=== PATIENT | female | born 1990 | race Caucasian/White ===

== ENCOUNTER 2019-03-31 09:55 | Emergency (ER) | payer SELFPAY ==
--- NOTE | 2019-03-31 09:57 | ED.GENADUL_ITS ---
Discharge Plan Disposition Patient Disposition: HOME Condition: Improving Discharge Details Chief Complaint: Nausea/Vomit/Diar Clinical Impression: Nausea vomiting and diarrhea, First trimester Primary Care Provider: None,None ED Provider: Luisa Vasquez Home Meds and New Rx's Prescriptions: New ondansetron HCl [Zofran] 4 mg tablet 4 mg PO Q6H PRN (Reason: nausea and vomiting) Qty: 10 RF: 0 Discharge Instructions Instructions: Acute Nausea and Vomiting (ED), Acute Diarrhea (ED), First Trimester (ED) Additional Instructions: Drink plenty of fluids and get plenty of rest. Take the Zofran as needed and directed for nausea and vomiting. Follow-up with women's wellness at the hospital to establish care for this Return to the emergency department if you develop any worsening or new concerning symptoms. Stand Alone Forms: Work Release Referrals: Stacie Perez MD [ [facility] STAFF PHYSICIAN] - Discharge Data Discharge Physician: Luisa Vasquez Medical Decision Making 1005 -- 28-year-old female [id number] at 6 weeks 5 days presents with vomiting for the past 2 days. Also admits to upper abdominal pain which resolves with vomiting and then returns. Admits to some mild blood-tinged vaginal discharge but otherwise narayan es any vaginal bleeding. Also admits to minimal intermittent diarrhea. Differential diagnosis includes nausea and vomiting in , viral illness, gastroenteritis, less likely ectopic . Her abdominal pain appears likely GI related, but as she has had no dating ultrasound and has abdominal pain, will obtain a pelvis/transvaginal ultrasound to confirm IUP if possible. Will check screening labs including beta quant, give bolus IV fluids and Reglan and reassess. 1150 --labs and imaging reviewed. White blood cell count 11. Potassium 3.2. Beta quant 33017. Urinalysis notes protein and ketones but no evidence of infection. Ultrasound notes an IUP at 6 weeks and 1 day with a small subchorionic hemorrhage. Patient still complaining of nausea and now complaining of some headache. Patient has not eaten and has been vomiting for the last few days. Will give another liter IV fluids, Zofran and Tylenol and reassess. Case discussed with Dr. Perez -will notify office to establish care with patient -okay with Zofran here and for home. 1325 -- pt feels much better and is requesting to go home. Patient able to eat some crackers and no further nausea and vomiting. She is advised to follow-up with women's wellness. Prescription for Zofran given. She is advised to return here with any worsening or new concerning symptoms. Medical Records Medical records reviewed: Yes I reviewed the patient's medical records. Imaging Data Radiologic Study: Radiologist's impression: US OB TRANSVAGINAL CLINICAL HISTORY: upper abd pain, vomiting, confirm IUP TECHNIQUE: Ultrasound performed using standard protocol. COMPARISON: No exams were available for comparison FINDINGS: Transabdominal and transvaginal exams were performed. There is an intrauterine gestational sac which appears appropriately positioned near the fundus. pole and yolk sac are seen. cardiac activity is demonstrated at 130 beats per minute. There is a question of a small amount of subchorionic hemorrhage. The crown-rump length measurements correspond to 6 weeks 1 day and an EDC of 2July 2027. Corpus luteum cyst is noted on the right ovary. There is no free fluid. IMPRESSION: Living intrauterine gestation of 6 weeks 1 day. No evidence of an ectopic . Question of a small amount of subchorionic hemorrhage. Lab Data Lab results reviewed: Yes I reviewed the patient's lab results. Labs: Laboratory Tests Range/Units 03/31/19 03/31/19 03/31/19 10:01 10:01 10:25 WBC (4.4-10.8) k/cumm 11.42 H RBC (4.00-5.20) m/cumm 4.59 Hgb (12.0-15.5) g/dL 13.9 Hct (36.0-46.0) % 39.2 MCV (80-95) fL 85.4 MCH (27.0-33.0) pg 30.3 MCHC (32.0-36.0) g/dL 35.5 RDW (11.7-14.6) % 12.3 Plt Count (130-400) x1000/uL 309 MPV (8.0-11.0) fL 10.3 Immature Gran % 0.3 Neutrophils % 76.6 Lymphocytes % 15.1 Monocytes % 7.5 Eosinophils % 0.3 Basophils % 0.2 Absolute Neutrophils (1.2-6.7) k/cumm 8.75 H Absolute Lymphocytes (1.2-3.4) k/cumm 1.72 Absolute Monocytes (0.11-0.7) k/cumm 0.86 H Absolute Eosinophils (0.0-0.7) k/cumm 0.03 Absolute Basophils (0.0-0.2) k/cumm 0.02 Sodium (136-145) mmol/L 136 Potassium (3.5-5.1) mmol/L 3.2 L Chloride (98-107) mmol/L 98 Carbon Dioxide (21.0-32.0) mmol/L 22.6 Anion Gap (3-11) mmol/L 15.4 H BUN (7-18) mg/dL 13 Creatinine (0.55-1.02) mg/dL 0.70 Estimated GFR/1.73 m2 (mL/min/1.73m2) >= 60.00 Glucose (70-100) mg/dL 92 Calcium (8.5-10.1) mg/dL 9.1 Total Bilirubin (0.2-1.0) mg/dL 0.9 AST (15-37) U/L 11 L ALT (14-59) U/L 21 Alkaline Phosphatase (46-116) U/L 46 Total Protein (6.4-8.2) g/dL 7.7 Albumin (3.4-5.0) g/dL 4.3 Beta HCG, Quant (1-3) mIU/mL 95351 H Urine Color (Yellow) Urine Clarity (Clear) Urine pH (5-8) Ur Specific [place] (1.005-1.025) Urine Protein (Negative) mg/dL Urine Ketones (Negative) mg/dL Urine Blood (Negative) Urine Nitrite (Negative) Urine Bilirubin (Negative) Urine Urobilinogen (Up TO 0.2) EU/dL Ur Leukocyte Esterase (Negative) Urine RBC (0-2) Urine WBC (0-5) HPF Ur Epithelial Cells (Negative) HPF Urine Crystals (Negative) HPF Urine Bacteria (Negative) HPF Urine Casts (Negative) LPF Urine Mucus (Negative) Ur Culture Indicated? Urine Glucose (Negative) mg/dL Patient ABO/Rh A Positive Range/Units 03/31/19 11:40 WBC (4.4-10.8) k/cumm RBC (4.00-5.20) m/cumm Hgb (12.0-15.5) g/dL Hct (36.0-46.0) % MCV (80-95) fL MCH (27.0-33.0) pg MCHC (32.0-36.0) g/dL RDW (11.7-14.6) % Plt Count (130-400) x1000/uL MPV (8.0-11.0) fL Immature Gran % Neutrophils % Lymphocytes % Monocytes % Eosinophils % Basophils % Absolute Neutrophils (1.2-6.7) k/cumm Absolute Lymphocytes (1.2-3.4) k/cumm Absolute Monocytes (0.11-0.7) k/cumm Absolute Eosinophils (0.0-0.7) k/cumm Absolute Basophils (0.0-0.2) k/cumm Sodium (136-145) mmol/L Potassium (3.5-5.1) mmol/L Chloride (98-107) mmol/L Carbon Dioxide (21.0-32.0) mmol/L Anion Gap (3-11) mmol/L BUN (7-18) mg/dL Creatinine (0.55-1.02) mg/dL Estimated GFR/1.73 m2 (mL/min/1.73m2) Glucose (70-100) mg/dL Calcium (8.5-10.1) mg/dL Total Bilirubin (0.2-1.0) mg/dL AST (15-37) U/L ALT (14-59) U/L Alkaline Phosphatase (46-116) U/L Total Protein (6.4-8.2) g/dL Albumin (3.4-5.0) g/dL Beta HCG, Quant (1-3) mIU/mL Urine Color (Yellow) Suzie Urine Clarity (Clear) Clear Urine pH (5-8) 6.0 Ur Specific [place] (1.005-1.025) >= 1.030 H Urine Protein (Negative) mg/dL 30 H Urine Ketones (Negative) mg/dL >=160 H Urine Blood (Negative) Trace-intact H Urine Nitrite (Negative) Negative Urine Bilirubin (Negative) Small H Urine Urobilinogen (Up TO 0.2) EU/dL 1.0 H Ur Leukocyte Esterase (Negative) Negative Urine RBC (0-2) 0-2 Urine WBC (0-5) HPF 0-2 Ur Epithelial Cells (Negative) HPF Moderate Urine Crystals (Negative) HPF Negative Urine Bacteria (Negative) HPF Few Urine Casts (Negative) LPF Negative Urine Mucus (Negative) Moderate Ur Culture Indicated? No Urine Glucose (Negative) mg/dL Negative Patient ABO/Rh HPI General Mode of arrival: ambulatory . Date/Time Provider Initiated Documentation: 03/31/19 09:56 . Limitations to Documentation: no limitations . Information obtained by: patient . History of Present Illness described as moderate, Quality is described as aching, and is localized to the abdomen (across upper abdomen). Patient reports no radiation. Patient started experiencing this day(s) (2) and it has been intermittent. other things that improve symptom(s), (briefing improved with vomiting then pain returns) Patient notes nausea/vomiting (multiple times daily, bile) and other (occasional diarrhea); denies fever/chills, headaches and loss of appetite. HPI Narrative: Main complaint is vomiting x 2 days. Related Data Home Medications Medication Instructions Recorded Confirmed ondansetron HCl [Zofran] 4 mg PO Q6H PRN #10 tab 03/31/19 Previous Rx's Medication Instructions Recorded ondansetron HCl [Zofran] 4 mg PO Q6H PRN #10 tab 03/31/19 Allergies Allergy/AdvReac Type Severity Reaction Status Date / Time No Known Allergies Allergy Unverified 03/31/19 10:04 Review of Systems All systems reviewed & are unremarkable except as noted in HPI and below Constitutional Constitutional: Reports as per HPI, Denies chills and Denies fever(s) Eyes Eyes: Denies blurry vision ENT Ears, Nose, Mouth, and Throat: Denies dizziness, Denies sore throat and Denies throat swelling Cardiovascular Cardiovascular: Denies chest pain and Denies dyspnea Respiratory Respiratory: Denies cough and Denies dyspnea Gastrointestinal Gastrointestinal: Denies abdominal pain, Denies diarrhea and Denies vomiting Genitourinary Genitourinary: Denies hematuria and Denies dysuria Musculoskeletal Musculoskeletal: Denies back pain and Denies numbness Integumentary/Breasts Skin/Breast: Denies lesions and Denies rash Neurologic Neurologic: Denies dizziness, Denies focal weakness and Denies numbness Allergic/Immunologic Allergic/Immunologic: Denies throat swelling [facility] Medical History No significant past medical history (Acute) Surgical History S/p bilateral myringotomy with tube placement (Acute) Social History Smoking/Tobacco Use Status: Former Tobacco Use Alcohol Intake: never Drug use: Daily Substance use type: marijuana Additional Social history: unable to assess privately Exam Const General: cooperative, healthy appearing and no acute distress HENMT Head: normal to inspection Face and sinus: normal facial exam Eyes General: appearance normal, both eyes and all related structures EOM: EOM intact bilaterally Neck Neck: normal visual inspection and No submandibular swelling Lymphatic: no lymphadenopathy noted Chest Chest: normal inspection of the chest and no tenderness Resp Effort & Inspection: normal respiratory effort and able to speak in complete sentences Auscultation: clear to auscultation bilaterally Cardio Rate: regular rate Rhythm: regular rhythm GI Inspection: normal to inspection Palpation: soft, not firm, not rigid and tender (across upper abdomen) Auscultation: normal bowel sounds Back/Spine/Pelvis Back: no CVA tenderness Skin General skin exam: no rashes or lesions noted Neuro General: alert, awake and oriented x3 Cognition: normal cognition Speech: speech normal Motor: muscle tone normal throughout Sensory Exam: no sensory deficits noted Extrem General: normal to inspection, full ROM, normal capillary refill, no calf tenderness bilaterally and no edema Psych Appearance: grossly normal Mental Status: mental status grossly normal Speech and Movement: speech and movement normal Affect: normal affect
[2019-03-31 10:00] VITALS: BP 125/74; PULSE 87; RESP 18; TEMP 35.6; O2SAT 98
--- NOTE | 2019-03-31 10:13 | DI.US_ITS ---
EXAM: US OB TRANSVAGINAL CLINICAL HISTORY: upper abd pain, vomiting, confirm IUP TECHNIQUE: Ultrasound performed using standard protocol. COMPARISON: No exams were available for comparison FINDINGS: Transabdominal and transvaginal exams were performed. There is an intrauterine gestational sac which appears appropriately positioned near the fundus. Fet al pole and yolk sac are seen. cardiac activity is demonstrated at 130 beats per minute. Ther e is a question of a small amount of subchorionic hemorrhage. The crown-rump length measurements cor respond to 6 weeks 1 day and an EDC of 2July 2027. Corpus luteum cyst is noted on the right ovary. There is no free fluid. IMPRESSION: Living intrauterine gestation of 6 weeks 1 day. No evidence of an ectopic . Question of a small amount of subchorionic hemorrhage.
[2019-03-31] MEDS: Normal Saline 1,000 ML 1000 ML IV ×2 (10:15→13:15)
[2019-03-31] MEDS: Metoclopramide 10 MG/2 ML VIAL IVP (10:22)
[2019-03-31] MEDS: Normal Saline Flush 10 ML SYR IVP (10:25)
[2019-03-31 10:36] LABS: Abs Immature Grans 0.03 k/cumm (0.0-0.09); Absolute Basophil Count 0.02 k/cumm (0.0-0.2); Absolute Eosinophil Count 0.03 k/cumm (0.0-0.7); Absolute Lymphocyte Count 1.72 k/cumm (1.2-3.4); Absolute Monocyte Count 0.86 k/cumm (0.11-0.7); Basophils % 0.2; Eosinophils % 0.3; HCT 39.2 % (36.0-46.0); HGB 13.9 g/dL (12.0-15.5); Immature Grans % 0.3; Lymphocytes % 15.1; Mean Corp. HGB Concentration 35.5 g/dL (32.0-36.0); Mean Corpuscular Hemoglobin 30.3 pg (27.0-33.0); Mean Corpuscular Volume 85.4 fL (80-95); Mean Platelet Volume 10.3 fL (8.0-11.0); Monocytes % 7.5; Neutrophils % 76.6; Platelet Count 309 x1000/uL (130-400); RBC 4.59 m/cumm (4.00-5.20); RBC Distribution Width 12.3 % (11.7-14.6); White Blood Cell Count 11.42 k/cumm (4.4-10.8)
[2019-03-31 10:39] LABS: Absolute Neutrophil Count 8.75 k/cumm (1.2-6.7)
[2019-03-31 11:14] VITALS: BP 113/60; PULSE 72; O2SAT 98
[2019-03-31 11:14] LABS: ALT 21 U/L (14-59); AST 11 U/L (15-37); Albumin 4.3 g/dL (3.4-5.0); Alkaline Phosphatase 46 U/L (46-116); Anion Gap 15.4 mmol/L (3-11); BUN 13 mg/dL (7-18); Bilirubin, Total 0.9 mg/dL (0.2-1.0); CO2 22.6 mmol/L (21.0-32.0); Calcium 9.1 mg/dL (8.5-10.1); Chloride 98 mmol/L (98-107); Glucose 92 mg/dL (70-100); Potassium 3.2 mmol/L (3.5-5.1); Sodium 136 mmol/L (136-145); Total Protein 7.7 g/dL (6.4-8.2)
[2019-03-31 11:45] LABS: Bilirubin Small (Negative); Blood Trace-intact (Negative); Clarity Clear (Clear); Glucose Negative (Negative); Ketones >=160 mg/dL (Negative); Leukocyte Esterase Negative (Negative); Nitrite Negative (Negative); Specific Gravity >= 1.030 (1.005-1.025)
[2019-03-31 11:56] LABS: Bacteria Few HPF (Negative); C & S Indicated? No; Casts Negative LPF (Negative); Crystals Negative HPF (Negative); Epithelial Cells Moderate HPF (Negative); Mucus Moderate (Negative); RBC 0-2 (0-2); WBC 0-2 HPF (0-5)
[2019-03-31 11:59] VITALS: BP 105/56; PULSE 76; O2SAT 99
[2019-03-31 12:08] VITALS: TEMP 35.6
[2019-03-31] MEDS: Ondansetron 4 MG/2 ML VIAL IVP (12:08)
[2019-03-31] MEDS: Acetaminophen 500 MG TAB 1000 MG PO (12:08)
[2019-03-31] MEDS: Potassium Chloride 20 MEQ TABCR 40 MEQ PO (12:12)
--- NOTE | 2019-03-31 12:51 | NUR.NOTE ---
pt given crackers and juventino-juan c to try Nursing Note:
[2019-03-31 13:18] VITALS: BP 112/59; PULSE 75; RESP 14; TEMP 37.2; O2SAT 99
[2019-03-31 13:21] LABS: Lipase 56 U/L (73-393)
== END 2019-03-31 13:44 | disposition home or self-care (01) ==
PROVIDERS: Emergency Provider Physician Assistant
DX: O21.9 Vomiting of pregnancy, unspecified (principal); Z3A.00 Weeks of gestation of pregnancy not specified
CPT/HCPCS: 80053; 83690; 86900; 86901; 96361; 96374; 96375; 99284; 76817; 81003; 81015; 84702; 85025; J2405; J2765

== ENCOUNTER 2019-04-27 14:50 | Outpatient (CLI) | payer SELFPAY ==
[2019-04-27 15:34] LABS: Abs Immature Grans 0.01 k/cumm (0.0-0.09); Absolute Basophil Count 0.01 k/cumm (0.0-0.2); Absolute Eosinophil Count 0.09 k/cumm (0.0-0.7); Absolute Lymphocyte Count 1.56 k/cumm (1.2-3.4); Absolute Monocyte Count 0.55 k/cumm (0.11-0.7); Absolute Neutrophil Count 6.94 k/cumm (1.2-6.7); Basophils % 0.1; HCT 36.7 % (36.0-46.0); HGB 12.6 g/dL (12.0-15.5); Immature Grans % 0.1; Mean Corp. HGB Concentration 34.3 g/dL (32.0-36.0); Mean Corpuscular Hemoglobin 29.8 pg (27.0-33.0); Mean Corpuscular Volume 86.8 fL (80-95); Mean Platelet Volume 9.9 fL (8.0-11.0); Neutrophils % 75.8; Platelet Count 295 x1000/uL (130-400); RBC 4.23 m/cumm (4.00-5.20); RBC Distribution Width 12.6 % (11.7-14.6); White Blood Cell Count 9.16 k/cumm (4.4-10.8)
[2019-04-27 16:18] LABS: TSH (W/Ref FT4) 0.57 uIU/mL (0.36-3.74)
[2019-04-28 10:33] LABS: Hepatitis B Surface Ag Negative (Negative)
[2019-04-28 11:35] LABS: HIV-1/2 Ag & Ab Screen Negative (Negative)
[2019-04-28 11:38] LABS: Hepatitis C Ab w Rflx HCV PCR Negative (Negative)
[2019-04-28 14:23] LABS: Rubella IgG Ab (UVM) Positive (See Note); Varicella IgG Antibody Positive (See Note)
[2019-04-29 11:26] LABS: Syphilis Total Ab w/Reflex Nonreactive (Nonreactive)
== END 2019-04-27 15:10 ==
PROVIDERS: Visit Provider Advanced Practice Midwife
DX: Z34.91 Encounter for supervision of normal pregnancy, unspecified, first trimester (principal); Z11.59 Encounter for screening for other viral diseases; Z11.4 Encounter for screening for human immunodeficiency virus [HIV]
CPT/HCPCS: 36415; 86787; 86803; 86850; 86900; 86901; 87340; 87389; 84443; 85025; 86762; 86780

== ENCOUNTER 2019-04-27 15:02 | Outpatient (REF) | payer SELFPAY ==
--- NOTE | 2019-04-27 14:25 | PAPFT_PTH ---
PATIENT: Bridget Partida LOC: [facility] U#:[id number] AGE/SX: 28/F ROOM: RE04/27/[address]: Maynor March RN : 1990 BED: DIS: 04/27/2019 SPEC #: [id number] RECD: 04/27/19 18:28 STATUS: LYLE REVishal #: [id number] YURI: 04/27/19 14:[address]: Maynor March DEPT: [facility] Cytology RECD BY: Frances Charles ENTERED: 04/27/19 18:28 SP TYPE: PAPFT JONO DR: None Tissues: 1 - CX/ENDOCX FOR PAP SMEARS Procedures: PAP THIN PREP/[facility] Screening HPV DNA PROBE Comments: [id number]
== END 2019-04-27 15:22 ==
LOC: LBN 15:02
PROVIDERS: Visit Provider Advanced Practice Midwife
DX: Z12.4 Encounter for screening for malignant neoplasm of cervix (principal)
CPT/HCPCS: 88142; 87624

== ENCOUNTER 2019-04-27 16:24 | Outpatient (REF) | payer SELFPAY ==
[2019-04-27 18:36] LABS: *AMPHETAMINES SCREEN URINE Negative (Negative); *BARBITURATES SCREEN URINE Negative (Negative); *BENZODIAZEPINES SCREEN URINE Negative (Negative); Cannabinoids THC POSITIVE (Negative); Cocaine Screen,Urine Negative (Negative); METHADONE URINE SCREEN Negative (Negative); OPIATES URINE SCREEN Negative (Negative)
[2019-04-27 18:41] LABS: Tricyclic Antidepressants Negative (Negative)
[2019-05-01 14:43] LABS: Chlamydia Result Negative (Negative)
[2019-05-01 15:27] LABS: GC Result Negative (Negative)
[2019-05-04 07:31] LABS: Buprenorphine Negative; Norbuprenorphine Negative
== END 2019-04-27 16:44 ==
LOC: LBN 16:24
PROVIDERS: Visit Provider Advanced Practice Midwife
DX: Z34.91 Encounter for supervision of normal pregnancy, unspecified, first trimester (principal); Z11.3 Encounter for screening for infections with a predominantly sexual mode of transmission
CPT/HCPCS: 80307; 87491; 87591; 87086

== ENCOUNTER 2019-06-29 00:33 | Outpatient (CLI) | payer SELFPAY ==
--- NOTE | 2019-06-29 09:59 | DI.US_ITS ---
EXAM: US OB 2-3 TRIMESTER CLINICAL HISTORY: morphology, , Z34.90 TECHNIQUE: Ultrasound performed using standard protocol. COMPARISON: US OB TRANSVAGINAL from 03/31/2019 FINDINGS: Ob ultrasound was performed utilizing 2nd trimester protocol. biometry is consistent with gest ational age of 19 weeks 3 days and EDC of 11/20/2019. Placenta is anterior with no placenta previa. Placental tip is 2.4 cm from the cervix on postvoid imaging. Incidental small bilateral choroid plexus cysts are noted, the largest about 4 millimeters in diamete r. anomaly screen within normal limits. cardiac rate 140 BPM.
== END 2019-06-29 00:53 ==
PROVIDERS: Visit Provider Obstetrics & Gynecology Gynecology
DX: Z34.92 Encounter for supervision of normal pregnancy, unspecified, second trimester (principal); Z3A.19 19 weeks gestation of pregnancy
CPT/HCPCS: 76805

== ENCOUNTER 2019-07-03 09:49 | Outpatient (CLI) | payer SELFPAY ==
[2019-07-03 10:13] LABS: Kit/Specimen SENT
== END 2019-07-03 10:09 ==
PROVIDERS: Visit Provider Advanced Practice Midwife
DX: Z34.92 Encounter for supervision of normal pregnancy, unspecified, second trimester (principal); Z36.89 Encounter for other specified antenatal screening
CPT/HCPCS: 36415

== ENCOUNTER 2019-07-17 12:01 | Outpatient (REF) | payer SELFPAY ==
[2019-07-17 13:49] LABS: *AMPHETAMINES SCREEN URINE Negative (Negative); *BARBITURATES SCREEN URINE Negative (Negative); *BENZODIAZEPINES SCREEN URINE Negative (Negative); Cannabinoids THC POSITIVE (Negative); Cocaine Screen,Urine Negative (Negative); METHADONE URINE SCREEN Negative (Negative); OPIATES URINE SCREEN Negative (Negative); Tricyclic Antidepressants Negative (Negative)
== END 2019-07-17 12:21 ==
LOC: LBN 12:01
PROVIDERS: Visit Provider Advanced Practice Midwife
DX: Z34.92 Encounter for supervision of normal pregnancy, unspecified, second trimester (principal)
CPT/HCPCS: 80307

== ENCOUNTER 2019-08-25 00:23 | Outpatient (CLI) | payer SELFPAY ==
--- NOTE | 2019-08-25 06:15 | DI.US_ITS ---
EXAM: US OB F/U FACIAL/LVOT/RVOT CLINICAL HISTORY: f/up on previously seen choroid plexus cyst,Z34.90. COMPARISON: US OB 2-3 TRIMESTER from 06/29/2019 TECHNIQUE: Transabdominalobstetrical ultrasound performed. FINDINGS: Sonographic images demonstrate a single intrauterine gestation. cardiac activity is demonstrat ed at 131 beats per minute. Amount of amniotic fluid appears visually normal. No choroid plexus cys ts are demonstrated on today's examination. There is no ventricular dilatation. IMPRESSION: Choroid plexus cysts head have resolved.. DATA REPOSITORY:
== END 2019-08-25 00:43 ==
PROVIDERS: Visit Provider Advanced Practice Midwife
DX: Z34.93 Encounter for supervision of normal pregnancy, unspecified, third trimester (principal); Z3A.28 28 weeks gestation of pregnancy
CPT/HCPCS: 76815

== ENCOUNTER 2019-08-25 00:56 | Outpatient (CLI) | payer SELFPAY ==
[2019-08-25 12:14] LABS: HCT 32.1 % (36.0-46.0); HGB 10.8 g/dL (12.0-15.5); Mean Corp. HGB Concentration 33.6 g/dL (32.0-36.0); Mean Corpuscular Hemoglobin 31.5 pg (27.0-33.0); Mean Corpuscular Volume 93.6 fL (80-95); Mean Platelet Volume 9.7 fL (8.0-11.0); Platelet Count 282 x1000/uL (130-400); RBC 3.43 m/cumm (4.00-5.20); RBC Distribution Width 12.9 % (11.7-14.6); White Blood Cell Count 12.36 k/cumm (4.4-10.8)
[2019-08-25 12:30] LABS: Glucose,1 Hr (Glucola) 110 mg/dL (80-140)
== END 2019-08-25 01:16 ==
PROVIDERS: Visit Provider Advanced Practice Midwife
DX: Z34.93 Encounter for supervision of normal pregnancy, unspecified, third trimester (principal)
CPT/HCPCS: 36415; 82950; 85027; 87086

== ENCOUNTER 2019-10-23 14:45 | Outpatient (REF) | payer MEDICAID, SELFPAY ==
[2019-10-23 15:13] LABS: *AMPHETAMINES SCREEN URINE Negative (Negative); *BARBITURATES SCREEN URINE Negative (Negative); *BENZODIAZEPINES SCREEN URINE Negative (Negative); Cannabinoids THC POSITIVE (Negative); Cocaine Screen,Urine Negative (Negative); METHADONE URINE SCREEN Negative (Negative); OPIATES URINE SCREEN Negative (Negative)
[2019-10-23 15:15] LABS: Tricyclic Antidepressants Negative (Negative)
[2019-10-29 06:40] LABS: Buprenorphine Negative
== END 2019-10-23 15:05 ==
LOC: LBN 14:45
PROVIDERS: Visit Provider Advanced Practice Midwife
DX: Z34.93 Encounter for supervision of normal pregnancy, unspecified, third trimester (principal); Z36.85 Encounter for antenatal screening for Streptococcus B
CPT/HCPCS: 80307; 87081

== ENCOUNTER 2019-11-20 08:37 | Inpatient (IN) | payer MEDICAID, SELFPAY ==
[2019-11-20 10:21] LABS: HCT 34.8 % (36.0-46.0); HGB 11.9 g/dL (12.0-15.5); Mean Corp. HGB Concentration 34.2 g/dL (32.0-36.0); Mean Corpuscular Hemoglobin 31.6 pg (27.0-33.0); Mean Corpuscular Volume 92.6 fL (80-95); Mean Platelet Volume 10.4 fL (8.0-11.0); Platelet Count 230 x1000/uL (130-400); RBC 3.76 m/cumm (4.00-5.20); RBC Distribution Width 13.5 % (11.7-14.6)
[2019-11-20] MEDS: fentaNYL 100 MCG/2 ML VIAL IT (18:36)
[2019-11-20] MEDS: Bupivacaine 0.25% Pres-Free 30 ML VIAL (18:37)
[2019-11-20] MEDS: Lidocaine 1% Multi-Dose 20 ML VIAL IJ (21:45)
[2019-11-20 22:05] LABS: COVID-19 RT-PCR UVMMC Result Negative (Negative)
[2019-11-20] MEDS: Acetaminophen 325 MG TAB 650 MG PO (23:26)
[2019-11-20] MEDS: Docusate Sodium 100 MG CAP PO (23:26)
[2019-11-20] MEDS: Hamamelis Leaf/Glycerin 100 EACH BOX PR (23:27)
[2019-11-21] MEDS: Ondansetron 4 MG/2 ML VIAL IVP (00:35)
[2019-11-21 06:27] LABS: HCT 30.7 % (36.0-46.0); HGB 10.4 g/dL (12.0-15.5); Mean Corp. HGB Concentration 33.9 g/dL (32.0-36.0); Mean Corpuscular Hemoglobin 31.3 pg (27.0-33.0); Mean Corpuscular Volume 92.5 fL (80-95); Mean Platelet Volume 9.8 fL (8.0-11.0); Platelet Count 217 x1000/uL (130-400); RBC 3.32 m/cumm (4.00-5.20); RBC Distribution Width 13.6 % (11.7-14.6); White Blood Cell Count 14.26 k/cumm (4.4-10.8)
[2019-11-21] MEDS: Acetaminophen 325 MG TAB 650 MG PO ×2 (11:13→17:56)
[2019-11-21] MEDS: Ibuprofen 600 MG TAB PO ×2 (11:14→17:55)
[2019-11-21] MEDS: Lactated Ringers 500 ML IV (15:00)
[2019-11-21] MEDS: Docusate Sodium 100 MG CAP PO (17:56)
[2019-11-22] MEDS: Ibuprofen 600 MG TAB PO ×2 (04:45→10:26)
[2019-11-22] MEDS: Acetaminophen 325 MG TAB 650 MG PO ×2 (04:46→10:27)
== END 2019-11-22 12:20 | disposition home or self-care (01) | DRG 807 ==
PROVIDERS: Admitting Provider Advanced Practice Midwife; Visit Provider Advanced Practice Midwife
DX: O76 Abnormality in fetal heart rate and rhythm complicating labor and delivery (principal); Z37.0 Single live birth; O63.1 Prolonged second stage (of labor); O69.81X0 Labor and delivery complicated by cord around neck, without compression, not applicable or unspecified; O70.0 First degree perineal laceration during delivery; O48.0 Post-term pregnancy; O42.02 Full-term premature rupture of membranes, onset of labor within 24 hours of rupture; Z3A.40 40 weeks gestation of pregnancy; O99.89 Other specified diseases and conditions complicating pregnancy, childbirth and the puerperium; R33.9 Retention of urine, unspecified; N31.2 Flaccid neuropathic bladder, not elsewhere classified
CPT/HCPCS: 36415; 85027; 86850; 86900; 86901; U0003; J2405; J3010; J3490

== ENCOUNTER 2020-07-11 15:23 | Outpatient (REF) | payer MEDICAID, SELFPAY | END 2020-07-11 15:24 | disposition home or self-care (01) | LOC: NCHCN 15:23 | PROVIDERS: PCP Family Medicine; Visit Provider Family Medicine | DX: J02.9 Acute pharyngitis, unspecified (principal) | CPT/HCPCS: 87077; 87070 ==

== ENCOUNTER 2024-01-13 07:14 | Outpatient (CLI) | payer OTHER, SELFPAY ==
--- NOTE | 2024-01-13 14:30 | DI.US_ITS ---
Exam(s) [facility] MAMMO DIAGNOSTIC BI US BREAST LT LIMITED EXAM: MG MAMMO DIAGNOSTIC BI CLINICAL HISTORY: LT BREAST MASS,N63.20. COMPARISON: US US BREAST LT LIMITED from 01/13/2024 TECHNIQUE: Craniocaudal and mediolateral oblique Full Field Digital Mammography views of both breast s with Computer Aided Diagnosis followed by Tomosynthesis and left breast ultrasound. FINDINGS: Mammography/Tomosynthesis: Masses/Architectural Distortion: Right breast: None seen. Left breast: Smoothly marginated nodule in the lower inner quadrant measuring 2.3 x 1.3 x 1.2 cm. Microcalcifications: No suspicious pleomorphic-type are seen. Skin Thickening/Nipple Retraction: None. Left breast US: Echotexture: Normal appearance of the glandular tissue. Shadowing: No suspicious foci. Cyst: None. Solid lesions: Circumscribed hypoechoic nodule measuring 1.8 x 0.8 x 1.9 cm. There is increased thro ugh transmission. No significant vascularity. Findings consistent with a fibroadenoma. Ductal dilation: None. IMPRESSION: 1. No evidence of malignancy is noted. Palpable abnormality corresponds to a benign appearing nodul e likely a fibroadenoma. 2. Six-month follow-up left breast ultrasound is recommended. BI-RADS Category 3 - 6 month - Probably Benign Finding: Recommend follow-up left breast ultrasound in 6 months Breast Density - Category D - Extremely dense Breast density category C or D implies that the patient has dense breast tissue. Dense breast tissue is very common and is not abnormal but dense breast tissue can make it harder to find cancer on a ma mmogram. Also, dense breast tissue may increase their breast cancer risk. This information about the result of the mammogram report was provided to the patient to raise their awareness. Use this report when you speak with the patient about their risks for breast cancer, which includes their family hist ory. At that time, you may recommend for more screening tests (Ultrasound or MRI) as they might be us eful based on their risk. A negative radiographic report should not delay biopsy if a dominant or clinically suspicious mass is present. Up to ten percent of cancers are not identified on mammography. A negative report may reinforce clinical impression. Adenosis and dense breasts may obscure an underlying neoplasm. False positive reports average 6 to 10%. Patient will receive a letter notifying them of these results.
== END 2024-01-13 07:34 ==
PROVIDERS: PCP Family Medicine; Visit Provider Obstetrics & Gynecology
DX: Z12.31 Encounter for screening mammogram for malignant neoplasm of breast (principal); N63.23 Unspecified lump in the left breast, lower outer quadrant
CPT/HCPCS: 76642; 77062; 77066; G0279

== ENCOUNTER 2025-03-16 09:21 | Emergency (ER) | payer SELFPAY ==
[2025-03-16 09:26] VITALS: BP 119/64; PULSE 94; RESP 16; TEMP 36.6; O2SAT 98
[2025-03-16 09:30] VITALS: BP 119/64; PULSE 94; RESP 16; TEMP 36.6; O2SAT 98
--- NOTE | 2025-03-16 09:31 | ED.GENADUL_ITS ---
Discharge Plan Disposition Patient Disposition: Home Discharge Details Clinical Impression: Salivary gland dysfunction Primary Care Provider: None,None ED Provider: Crissy Benavidez Home Meds and New Rx's Prescriptions: No Action No Known Home Meds Discharge Instructions Additional Instructions: Please call your dentist and follow-up with ENT as discussed. A referral has been placed to ENT for evaluation/management of your persistent salivary dysfunction. I recommend that you continue to do sour candies, salt gargles, warm compresses, and stay well-hydrated. Return to emergency care if you notice any new swelling inside your mouth, difficulty swallowing, inability to fully open your mouth, fever/chills or general malaise associated with your symptoms, worsening swelling on the side of your neck/inability to fully move your neck, or if you are very worried you need to be rechecked immediately Referrals: [facility] [Provider Group] HPI General Date/Time Provider Initiated Documentation: 03/16/25 09:27 . HPI Narrative: Bridget is a 34-year-old female presents emergency department today for evaluation of concern of salivary stone complication. Reports ongoing issue with right salivary gland: intermittent pain during meals, impaired saliva flow, and palpable mass under right side of tongue, and swelling under R side of jawline. Mass has increased in size and firmness, swelling persists for 4 days, causing discomfort during eating and swallowing. Initially mass was small, round, mobile stone-like structure, and foot is currently not palpable due to swelling. Mild pain with lateral tongue movement, no dental pain . No systemic symptoms (fever, chills, congestion, cough, nausea/vomiting, abdominal pain). Sore throat today, possibly due to daughter's illness. No unusual headaches, congestion, cough, nausea, vomiting, abdominal pain, or urinary issues. Regular dentist ([facility]), had dental imaging and fillings last year. . History of scar tissue from wisdom tooth irritation, referred to oral surgeon. PMH unremarkable, says she occasionally gets hypotensive. Related Data Home Medications ?Medication ?Instructions ?Recorded ?Confirmed Unknown [No Known Home Meds] 01/12/24 0 01/12/24 Allergies Allergy/AdvReac Type Severity Reaction Status Date / Time No Known Allergies Allergy Verified 01/12/24 13:44 General Stated Complaint: DentalOral MAT: 4 Exam Narrative Exam Narrative: General Appearance: Well-appearing. No acute distress Vital signs: Within normal limits, no fever HEENT: Firm swelling under tongue right side of the floor of mouth along folds in mucosa. Normal tongue mobility, no other intraoral swelling. No dental pain to palpation. No trismus + right sided submandibular lymphadenopathy Neck: Full painless range of motion to neck Respiratory: Work of breathing able to speak in full sentences Skin: Warm and dry, no rash. Psychiatric: Normal. Course Vital Signs Vital signs: Vital Signs Temperature 36.6 C 03/16/25 09:26 Pulse 94 H 03/16/25 09:26 Respiratory Rate 16 03/16/25 09:26 Blood Pressure 119/64 03/16/25 09:26 Pulse Oximetry 98 03/16/25 09:26 Temperature 36.6 C 03/16/25 09:30 Temperature Source Oral 03/16/25 09:30 Pulse 94 H 03/16/25 09:30 Respiratory Rate 16 03/16/25 09:30 Blood Pressure 119/64 03/16/25 09:30 Pulse Oximetry 98 03/16/25 09:30 Oxygen Delivery Method Room Air 03/16/25 09:30 Oxygen Flow Rate 0 03/16/25 09:30 Medical Decision Making Initial Assessment: Persistent issue with right salivary gland: pain and swelling, particularly when eating. Swelling persists for 4 days, progressively worsening. Exam reveals firm, swollen area under tongue. Differential Diagnosis: - Sialolithiasis: Persistent pain and swelling, particularly when eating. Imaging with contrast to rule out abscess or other abnormalities. - Abscess: Not resolving, progressively worsening. Imaging with contrast to check for infection. ED Course: - Imaging with contrast conducted - Blood work obtained While that he was placed Bridget rohit kay flushed all over, nauseated, tunnel vision, and then had a brief syncopal episode. Quick wake up afterwards, no postictal period. Consistent with vasovagal syncope. BP was noted to be low, 80s systolic. 1 L normal saline administered with good improvement of blood pressure and symptoms. She reports feeling asymptomatic after getting fluids and taking PO. Independently interpreted the following tests : CBC, BMP unremarkable. CT of the neck performed, this did not show any acute abnormality. Workup today reassuring, unclear etiology of symptoms, likely obstructed salivary duct. Workup not concerning for active infection at this time or airway compromise. I did attempt to reach [facility] and [facility], as [facility] was not in office today. Unable to reach any providers for consultation. Referral was placed to [facility] for further evaluation/management; pt also to call her dentist directly to see about getting an appointment. Clinical Impression: -Salivary gland dysfunction Reviewed discharge instructions with patient, incl symptomatic management and red flags indicating need for return to emergency care. She voices agreement with plan of care Disposition: - Follow-Up: Referral to ENT Patient consented to the use of [facility] Data Radiologic Study: Radiologist's impression: Accession No. : [id number] Creator : NADIA COCHRAN Dictator : NADIA COCHRAN Auto Electrical Technician : Automobile Bumper Straightener : NADIA COCHRAN Approver2 : Report Date : 03/16/2025 12:01:59 Exam(s) CT NECK W EXAM: CT NECK W CLINICAL HISTORY: R submandibular swelling. TECHNIQUE: Imaging Protocol: Axial computed tomography images with coronal and sagittal reformatted images were created and reviewed CONTRAST MATERIAL: Intravenous: Omnipaque 350 Contrast volume:100 ml contrast COMPARISON: No exams were available for comparison FINDINGS: Significant artifact related to patient's dental work. Parotids: Normal. Submandibular glands: symmetric in size. Partially obscured by artifact. No evidence of mass. Thyroid gland: Normal. Lymph nodes: There are scattered lymph nodes seen along the level one to level three all measuring less than 8 mm in short axis diameter which are physiologic in nature. Carotids arteries: No significant stenosis or dissection. Vertebral arteries: No significant stenosis or dissection. Soft tissues: The floor the mouth is unremarkable. The tonsils and adenoids are unremarkable. The epiglottis and vocal cords are within normal limits. Lungs: Images through both lung apices are unremarkable. Bones: Degenerative changes of the cervical spine. Visualized portions of the brain and orbits: Unremarkable. Sinuses and mastoids: Clear. IMPRESSION: Normal CT scan of the neck. RADIATION DOSE DELIVERED: 190.32mGy.cm Total DLP DATA REPOSITORY: All CT scans at this facility are submitted to the National Radiology Data Registry (NRDR) Dose Index Registry (DIR) with the [employer] ([employer]). RADIATION OPTIMIZATION: All CT scans at this facility use at least one of these dose optimization techniques: automated exposure control; mA and/or kV adjustment per patient size (includes targeted exams where dose is matched to clinical indication); or iterative reconstruction. 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 01/13/2024. repeat 6 months Tobacco dependence (Acute) History of marijuana use (Acute) Anxiety (Chronic) related to SAB x 2 and concerns about Medical History (Updated 03/16/25 @ 13:03 by Crissy Sánchez) No significant past medical history Surgical History S/p bilateral myringotomy with tube placement Family History Maternal Grandmother Diabetes Maternal Grandfather Heart disease Alcohol abuse sober x 10 yrs. Social History Smoking/Tobacco Use Status: Former Tobacco Use Smoking risk assessment performed?: Yes Alcohol Intake: never Drug use: Daily Substance use type: marijuana Additional Social history: unable to assess privately Female Reproductive History Menstrual Age of Menarche: 11 Duration of menses: 6-7 days control method: natural family planning History History 3 Para 1 Hx # Term Pregnancies 1 Multiple births 0 Hx # Pregnancies 0 Ectopic pregnancies 0 AB induced 0 Hx Number of Living Children 1 AB spontaneous 2 Past Pregnancies Del. Date GA/Weeks # Preg Succ Route Wgt Sex Labor Lgth Anesth esia Location Prov Complic 11/20/19 40 No vaginal 3543.69 g Female 8 hrs 19 min Carey Calderon MD/[facility] Delivery Date: 11/20/19 Last Updated by: Stacey Gandara LPN prolonged 2nd stage; 1st degree vaginal,perineal laceration w/repair
[2025-03-16 10:14] LABS: Abs Immature Grans 0.01 10^3/uL (0.0-0.06); HCT 38.7 % (36.0-46.0); HGB 12.8 g/dL (11.2-15.7); Immature Grans % 0.2 %; MCH 29.7 pg (27.0-33.0); MCHC 33.1 % (32.0-36.0); MCV 90 fL (80-95); MPV 9.6 fL (8.0-11.0); Platelet Count 254 10^3/uL (130-400); RBC 4.31 10^6/uL (3.93-5.22); RDW 12.8 % (11.7-14.6); RDW-SD 42.5 fL; WBC 5.90 10^3/uL (4.4-10.8)
[2025-03-16 10:15] VITALS: BP 80/46; PULSE 60; RESP 15; TEMP 35.6; O2SAT 100
[2025-03-16] MEDS: Normal Saline 1,000 ML 1000 ML IV (10:21)
[2025-03-16 10:26] LABS: Anion Gap 7.2 mmol/L (3-11); BUN 8 mg/dL (7-18); CO2 28.8 mmol/L (21.0-32.0); Calcium 8.8 mg/dL (8.5-10.1); Chloride 103 mmol/L (98-107); Estimated GFR 97.87 (mL/min/1.73m2); Glucose 100 mg/dL (74-106); Potassium 4.0 mmol/L (3.5-5.1); Sodium 139 mmol/L (136-145)
[2025-03-16] MEDS: Normal Saline - Diluent 50 ML VIAL IJ (10:57)
[2025-03-16 12:18] VITALS: BP 86/50; PULSE 67; RESP 16; O2SAT 100
[2025-03-16 12:41] VITALS: BP 90/58; PULSE 73; O2SAT 99
[2025-03-16 12:47] VITALS: BP 102/60; PULSE 78; RESP 18; O2SAT 100
== END 2025-03-16 13:25 | disposition home or self-care (01) ==
PROVIDERS: Emergency Provider Nurse Practitioner Family
DX: K11.9 Disease of salivary gland, unspecified (principal)
CPT/HCPCS: 99284; 99285; 36415; 36416; 82962; 70491; 80048; 96360; 85025